=== PATIENT | male | born 1975 | race Two or more races ===

== ENCOUNTER 2019-08-05 17:31 | Inpatient (IN) | payer OTHER ==
[~2019-08-05] VITALS: Ht 172.7 cm; Wt 74.0 kg
[2019-08-05] MEDS ORDERED: MIRT-92 PO (17:59)
[2019-08-05] MEDS ORDERED: RANI50VI4 IM (17:59)
[2019-08-05] MEDS ORDERED: OXCA300T29 PO (17:59)
[2019-08-05] MEDS ORDERED: VENL-193 PO (17:59)
[2019-08-05 18:08] LABS: BASOPHILS % (AUTO) 0.7 % (0.0-2.0); EOSINOPHILS % (AUTO) 0.4 % (1.0-6.0); HEMATOCRIT 42.9 % (41-53); HEMOGLOBIN 14.7 g/dL (13.5-17.5); LYMPHOCYTES # (AUTO) 1.2 K/uL (1.0-4.8); LYMPHOCYTES % (AUTO) 13.7 % (22.0-44.0); MEAN CORPUSCULAR HGB CONC 34.2 G/dL (31.0-37.0); MEAN CORPUSCULAR VOLUME 88 fL (80-100); MONOCYTES # (AUTO) 0.4 K/uL (0.1-1.0); MONOCYTES % (AUTO) 4.8 % (2.0-9.0); NEUTROPHILS # (AUTO) 7.2 K/uL (1.8-7.7); NEUTROPHILS % (AUTO) 80.4 % (40.0-70.0); PLATELET COUNT (AUTO) 335 K/uL (150-450); RED BLOOD CELL COUNT(AUTO) 4.89 MIL/uL (4.50-5.90); RED CELL DISTRIBUTION WIDTH 13.4 % (11.5-14.5)
[2019-08-05 18:26] LABS: ANION GAP 10 mmol/L (8-16); CALCIUM, TOTAL 9.1 mg/dL (8.8-10.5); CARBON DIOXIDE 27 mmol/L (22-29); CHLORIDE 102 mmol/L (98-107); CREATININE 0.83 mg/dL (0.60-1.30); GLOMERULAR FILTR. RATE CALC > 60 mL/min (>60); GLUCOSE,RANDOM 92 mg/dL (70-110); SODIUM SERUM 139 mmol/L (136-145); UREA NITROGEN, BLOOD 6 mg/dL (7-18)
[2019-08-05 18:37] LABS: ALANINE AMINOTRANSFERASE 36 U/L (12-78); ALBUMIN 3.8 g/dL (3.4-5.0); ALKALINE PHOSPHATASE 125 U/L (46-116); ASPARTATE AMINOTRANSFERASE 24 U/L (15-37); BILIRUBIN,TOTAL 0.3 mg/dL (0.1-1.0); TOTAL PROTEIN, SERUM 7.6 g/dL (6.4-8.2)
[2019-08-05] MEDS ORDERED: RANI150T7 PO (19:09)
[2019-08-05] MEDS ORDERED: ACETAMINOPHEN 325 MG TABLET PO PRN (19:15)
[2019-08-05] MEDS ORDERED: CeFAZolin 1 GM/DEXTROSE 50 ML IV ONE (19:15)
[2019-08-05 23:10] VITALS: BP 152/88
[2019-08-05] MEDS: OxyCODONE HCL/ACETAMINOPHEN 5-325 MG TABLET PO PRN (23:17)
[2019-08-06] MEDS: DOCUSATE SODIUM 100 MG CAPSULE PO SCH ×3 (00:07→20:00)
[2019-08-06] MEDS: CEPHALEXIN MONOHYDRATE 500 MG CAPSULE PO SCH ×4 (00:07→23:59)
[2019-08-06 04:30] VITALS: BP 124/65
[2019-08-06] MEDS: OxyCODONE HCL/ACETAMINOPHEN 5-325 MG TABLET PO PRN ×4 (04:36→20:01)
[2019-08-06] MEDS ORDERED: INFLUENZA VIRUS VACCINE QVS 2019-20 (3YR+)/PF 60 MCG/0.5 ML SYRINGE IM ONE (07:45)
[2019-08-06] MEDS: FAMOTIDINE 20 MG TABLET PO SCH (08:05)
[2019-08-06 08:20] VITALS: BP 145/88
[2019-08-06] MEDS: VENLAFAXINE HCL 75 MG ER CAPSULE PO SCH (16:05)
[2019-08-06 16:17] VITALS: BP 142/77
[2019-08-06] MEDS: OXcarbazepine 300 MG TABLET PO SCH (17:22)
[2019-08-06 19:28] VITALS: BP 135/77
[2019-08-06] MEDS: MIRTAZAPINE 15 MG TABLET PO SCH ×3 (21:00→21:55)
[2019-08-06] MEDS: MAGNESIUM HYDROXIDE SUSPENSION 30 ML UDCUP PO PRN (21:48)
[2019-08-07 04:00] VITALS: BP 134/87
[2019-08-07] MEDS: VENLAFAXINE HCL 75 MG ER CAPSULE PO SCH (09:07)
[2019-08-07] MEDS: FAMOTIDINE 20 MG TABLET PO SCH (09:07)
[2019-08-07] MEDS: DOCUSATE SODIUM 100 MG CAPSULE PO SCH ×3 (09:07→20:25)
[2019-08-07] MEDS: MAGNESIUM HYDROXIDE SUSPENSION 30 ML UDCUP PO PRN (09:07)
[2019-08-07] MEDS: MULTIVITAMINS, THERAPEUTIC TABLET PO SCH (09:07)
[2019-08-07] MEDS: CEPHALEXIN MONOHYDRATE 500 MG CAPSULE PO SCH ×3 (09:07→23:17)
[2019-08-07] MEDS: OxyCODONE HCL/ACETAMINOPHEN 5-325 MG TABLET PO PRN ×2 (09:08→16:38)
[2019-08-07] MEDS: OXcarbazepine 300 MG TABLET PO SCH (17:34)
[2019-08-07 17:35] VITALS: BP 137/79
[2019-08-07] MEDS ORDERED: SODIUM CL IRRIG SOLN BOTTLE 250 ML IRRIG ONE (18:03)
[2019-08-07 19:25] VITALS: BP 151/64
[2019-08-07] MEDS: MIRTAZAPINE 15 MG TABLET PO SCH (20:26)
[2019-08-08 05:32] VITALS: BP 116/75
[2019-08-08 08:04] VITALS: BP 125/76
[2019-08-08] MEDS: CEPHALEXIN MONOHYDRATE 500 MG CAPSULE PO SCH ×2 (08:05→16:33)
[2019-08-08] MEDS: FAMOTIDINE 20 MG TABLET PO SCH (08:16)
[2019-08-08] MEDS: OxyCODONE HCL/ACETAMINOPHEN 5-325 MG TABLET PO PRN ×2 (08:16→16:35)
[2019-08-08] MEDS: VENLAFAXINE HCL 75 MG ER CAPSULE PO SCH (08:16)
[2019-08-08] MEDS: DOCUSATE SODIUM 100 MG CAPSULE PO SCH ×2 (08:17→19:59)
[2019-08-08] MEDS: MULTIVITAMINS, THERAPEUTIC TABLET PO SCH (08:17)
[2019-08-08 16:27] VITALS: BP 145/82
[2019-08-08] MEDS: OXcarbazepine 300 MG TABLET PO SCH (17:30)
[2019-08-08 19:49] VITALS: BP 139/99
[2019-08-08] MEDS: MIRTAZAPINE 15 MG TABLET PO SCH (20:00)
[2019-08-09] MEDS: CEPHALEXIN MONOHYDRATE 500 MG CAPSULE PO SCH ×4 (00:30→23:58)
[2019-08-09] MEDS: OxyCODONE HCL/ACETAMINOPHEN 5-325 MG TABLET PO PRN ×5 (00:33→23:58)
[2019-08-09 04:30] VITALS: BP 126/71
[2019-08-09 07:56] VITALS: BP 132/74
[2019-08-09] MEDS: VENLAFAXINE HCL 75 MG ER CAPSULE PO SCH (08:10)
[2019-08-09] MEDS: FAMOTIDINE 20 MG TABLET PO SCH (08:10)
[2019-08-09] MEDS: MULTIVITAMINS, THERAPEUTIC TABLET PO SCH (08:11)
[2019-08-09] MEDS: DOCUSATE SODIUM 100 MG CAPSULE PO SCH ×2 (08:11→19:58)
[2019-08-09 11:32] VITALS: BP_SYST 131; BP_SYST 141; BP_DIAS 78
[2019-08-09] MEDS: OXcarbazepine 300 MG TABLET PO SCH (17:48)
[2019-08-09 19:36] VITALS: BP 121/73
[2019-08-09] MEDS: MAGNESIUM HYDROXIDE SUSPENSION 30 ML UDCUP PO PRN (19:58)
[2019-08-09] MEDS: MIRTAZAPINE 15 MG TABLET PO SCH (20:01)
[2019-08-10 05:50] VITALS: BP 128/76
[2019-08-10] MEDS: VENLAFAXINE HCL 75 MG ER CAPSULE PO SCH (07:56)
[2019-08-10] MEDS: DOCUSATE SODIUM 100 MG CAPSULE PO SCH ×2 (07:57→19:39)
[2019-08-10] MEDS: CEPHALEXIN MONOHYDRATE 500 MG CAPSULE PO SCH ×2 (07:57→15:13)
[2019-08-10] MEDS: MULTIVITAMINS, THERAPEUTIC TABLET PO SCH (07:57)
[2019-08-10] MEDS: FAMOTIDINE 20 MG TABLET PO SCH (07:57)
[2019-08-10 08:08] VITALS: BP 138/94
[2019-08-10] MEDS ORDERED: BISACODYL 10 MG RECTAL RECTAL SUPPOSITORY PR PRN (09:45)
[2019-08-10] MEDS: OxyCODONE HCL/ACETAMINOPHEN 5-325 MG TABLET PO PRN ×3 (10:45→19:39)
[2019-08-10] MEDS: NEOMYCIN/BACITRACIN/POLYMYXIN B 30 GM OINTMENT TP SCH (15:23)
[2019-08-10] MEDS: OXcarbazepine 300 MG TABLET PO SCH (17:58)
[2019-08-10 19:40] VITALS: BP 142/81
[2019-08-10] MEDS: MIRTAZAPINE 15 MG TABLET PO SCH (19:41)
[2019-08-11] MEDS: OxyCODONE HCL/ACETAMINOPHEN 5-325 MG TABLET PO PRN ×5 (00:03→20:34)
[2019-08-11] MEDS: CEPHALEXIN MONOHYDRATE 500 MG CAPSULE PO SCH ×3 (00:04→23:26)
[2019-08-11 06:48] VITALS: BP 154/73
[2019-08-11 07:06] LABS: BASOPHILS % (AUTO) 0.8 % (0.0-2.0); HEMATOCRIT 38.9 % (41-53); HEMOGLOBIN 13.4 g/dL (13.5-17.5); LYMPHOCYTES # (AUTO) 2.1 K/uL (1.0-4.8); LYMPHOCYTES % (AUTO) 24.9 % (22.0-44.0); MEAN CORPUSCULAR HEMOGLOBIN 30.1 pg (26.0-34.0); MEAN CORPUSCULAR HGB CONC 34.3 G/dL (31.0-37.0); MEAN CORPUSCULAR VOLUME 88 fL (80-100); MONOCYTES # (AUTO) 0.5 K/uL (0.1-1.0); MONOCYTES % (AUTO) 6.2 % (2.0-9.0); NEUTROPHILS # (AUTO) 5.4 K/uL (1.8-7.7); NEUTROPHILS % (AUTO) 64.1 % (40.0-70.0); PLATELET COUNT (AUTO) 314 K/uL (150-450); RED BLOOD CELL COUNT(AUTO) 4.45 MIL/uL (4.50-5.90); RED CELL DISTRIBUTION WIDTH 13.3 % (11.5-14.5)
[2019-08-11 07:23] LABS: ANION GAP 5 mmol/L (8-16); CALCIUM, TOTAL 8.6 mg/dL (8.8-10.5); CARBON DIOXIDE 30 mmol/L (22-29); CHLORIDE 99 mmol/L (98-107); CREATININE 0.74 mg/dL (0.60-1.30); GLOMERULAR FILTR. RATE CALC > 60 mL/min (>60); GLUCOSE,RANDOM 87 mg/dL (70-110); POTASSIUM 4.5 mmol/L (3.5-5.1); SODIUM SERUM 134 mmol/L (136-145); UREA NITROGEN, BLOOD 10 mg/dL (7-18)
[2019-08-11 08:01] VITALS: BP 96/68
[2019-08-11] MEDS: VENLAFAXINE HCL 75 MG ER CAPSULE PO SCH (08:17)
[2019-08-11] MEDS: MULTIVITAMINS, THERAPEUTIC TABLET PO SCH (08:17)
[2019-08-11] MEDS: DOCUSATE SODIUM 100 MG CAPSULE PO SCH ×2 (08:17→20:34)
[2019-08-11] MEDS: NEOMYCIN/BACITRACIN/POLYMYXIN B 30 GM OINTMENT TP SCH (08:18)
[2019-08-11] MEDS: FAMOTIDINE 20 MG TABLET PO SCH (08:18)
[2019-08-11 08:25] VITALS: BP 127/66
[2019-08-11 15:27] VITALS: BP 116/75
[2019-08-11] MEDS: OXcarbazepine 300 MG TABLET PO SCH (18:06)
[2019-08-11 19:18] VITALS: BP 117/74
[2019-08-11] MEDS: MIRTAZAPINE 15 MG TABLET PO SCH (20:36)
[2019-08-12] MEDS: OxyCODONE HCL/ACETAMINOPHEN 5-325 MG TABLET PO PRN ×5 (00:34→19:48)
[2019-08-12 05:15] VITALS: BP 159/92
[2019-08-12 07:18] VITALS: BP 124/79
[2019-08-12] MEDS: CEPHALEXIN MONOHYDRATE 500 MG CAPSULE PO SCH (08:10)
[2019-08-12] MEDS: VENLAFAXINE HCL 75 MG ER CAPSULE PO SCH (08:10)
[2019-08-12] MEDS: DOCUSATE SODIUM 100 MG CAPSULE PO SCH ×2 (08:10→19:48)
[2019-08-12] MEDS: FAMOTIDINE 20 MG TABLET PO SCH (08:10)
[2019-08-12] MEDS: MULTIVITAMINS, THERAPEUTIC TABLET PO SCH (08:10)
[2019-08-12 15:57] VITALS: BP 148/78
[2019-08-12] MEDS: OXcarbazepine 300 MG TABLET PO SCH (17:53)
[2019-08-12] MEDS: NEOMYCIN/BACITRACIN/POLYMYXIN B 30 GM OINTMENT TP SCH (17:54)
[2019-08-12] MEDS: MIRTAZAPINE 15 MG TABLET PO SCH (19:50)
[2019-08-12 20:14] VITALS: BP 104/57
[2019-08-13] MEDS: OxyCODONE HCL/ACETAMINOPHEN 5-325 MG TABLET PO PRN ×5 (00:13→22:39)
[2019-08-13 06:08] VITALS: BP 117/80
[2019-08-13 08:00] VITALS: BP 118/74
[2019-08-13] MEDS: VENLAFAXINE HCL 75 MG ER CAPSULE PO SCH (08:26)
[2019-08-13] MEDS: DOCUSATE SODIUM 100 MG CAPSULE PO SCH ×2 (08:29→20:11)
[2019-08-13] MEDS: FAMOTIDINE 20 MG TABLET PO SCH (08:29)
[2019-08-13] MEDS: MULTIVITAMINS, THERAPEUTIC TABLET PO SCH (08:30)
[2019-08-13 12:00] VITALS: BP 113/69
[2019-08-13] MEDS: NEOMYCIN/BACITRACIN/POLYMYXIN B 30 GM OINTMENT TP SCH (13:07)
[2019-08-13 16:19] VITALS: BP 114/68
[2019-08-13] MEDS: OXcarbazepine 300 MG TABLET PO SCH (17:31)
[2019-08-13 19:22] VITALS: BP 128/67
[2019-08-13] MEDS: MIRTAZAPINE 15 MG TABLET PO SCH (20:12)
[2019-08-14 05:23] VITALS: BP 134/62
[2019-08-14 08:00] VITALS: BP 128/81
[2019-08-14] MEDS: DOCUSATE SODIUM 100 MG CAPSULE PO SCH ×2 (08:57→20:04)
[2019-08-14] MEDS: MULTIVITAMINS, THERAPEUTIC TABLET PO SCH (08:58)
[2019-08-14] MEDS: FAMOTIDINE 20 MG TABLET PO SCH (08:58)
[2019-08-14] MEDS: VENLAFAXINE HCL 75 MG ER CAPSULE PO SCH (08:58)
[2019-08-14] MEDS: OxyCODONE HCL/ACETAMINOPHEN 5-325 MG TABLET PO PRN ×3 (08:59→19:57)
[2019-08-14] MEDS: NEOMYCIN/BACITRACIN/POLYMYXIN B 30 GM OINTMENT TP SCH (09:00)
[2019-08-14 12:21] VITALS: BP 109/67
[2019-08-14 16:17] VITALS: BP 113/65
[2019-08-14 17:15] LABS: APPEARANCE,URINE CLEAR (CLEAR); BILIRUBIN,URINE NEGATIVE (NEGATIVE); GLUCOSE, URINE (UA) NEGATIVE (NEGATIVE); KETONES,URINE NEGATIVE (NEGATIVE); LEUKOCYTE ESTERASE ,URINE NEGATIVE (NEGATIVE); NITRATE,URINE NEGATIVE (NEGATIVE); OCCULT BLOOD,URINE NEGATIVE (NEGATIVE); PH,URINE 7.5 (5.0-8.0); PROTEIN,URINE NEGATIVE (NEGATIVE); UROBILINOGEN,URINE 0.2 mg/dL (<=1.0)
[2019-08-14 17:20] LABS: AMPHET/METH SCREEN,URINE NEGATIVE (NEGATIVE); BARBITURATE SCREEN, URINE NEGATIVE (NEGATIVE); BENZODIAZEPINES SCREEN,URINE NEGATIVE (NEGATIVE); CANNABINOID SCREEN,URINE NEGATIVE (NEGATIVE); COCAINE SCREEN,URINE NEGATIVE (NEGATIVE); METHADONE SCREEN, URINE NEGATIVE (NEGATIVE); OPIATE SCREEN,URINE NEGATIVE (NEGATIVE)
[2019-08-14 17:22] LABS: PHENCYCLIDINE SCREEN,URINE NEGATIVE (NEGATIVE)
[2019-08-14] MEDS: OXcarbazepine 300 MG TABLET PO SCH (17:34)
[2019-08-14 19:30] VITALS: BP 125/70
[2019-08-14] MEDS: MIRTAZAPINE 15 MG TABLET PO SCH ×2 (19:55→21:00)
[2019-08-14 23:22] VITALS: BP 122/67
[2019-08-15] MEDS: OxyCODONE HCL/ACETAMINOPHEN 5-325 MG TABLET PO PRN ×5 (00:03→22:47)
[2019-08-15 08:08] VITALS: BP 124/68
[2019-08-15] MEDS: MULTIVITAMINS, THERAPEUTIC TABLET PO SCH (08:42)
[2019-08-15] MEDS: DOCUSATE SODIUM 100 MG CAPSULE PO SCH ×2 (08:46→21:00)
[2019-08-15] MEDS: VENLAFAXINE HCL 75 MG ER CAPSULE PO SCH (08:46)
[2019-08-15] MEDS: FAMOTIDINE 20 MG TABLET PO SCH (08:46)
[2019-08-15] MEDS: NEOMYCIN/BACITRACIN/POLYMYXIN B 30 GM OINTMENT TP SCH (11:40)
[2019-08-15 15:38] VITALS: BP 116/65
[2019-08-15] MEDS: OXcarbazepine 300 MG TABLET PO SCH (17:41)
[2019-08-15 19:30] VITALS: BP 118/66
[2019-08-15] MEDS: MIRTAZAPINE 15 MG TABLET PO SCH (20:30)
[2019-08-16 04:00] VITALS: BP 122/68
[2019-08-16 07:26] LABS: HEMATOCRIT 41.1 % (41-53); HEMOGLOBIN 14.1 g/dL (13.5-17.5); MEAN CORPUSCULAR HEMOGLOBIN 29.8 pg (26.0-34.0); MEAN CORPUSCULAR HGB CONC 34.2 G/dL (31.0-37.0); MEAN CORPUSCULAR VOLUME 87 fL (80-100); PLATELET COUNT (AUTO) 365 K/uL (150-450); RED BLOOD CELL COUNT(AUTO) 4.72 MIL/uL (4.50-5.90); RED CELL DISTRIBUTION WIDTH 13.3 % (11.5-14.5)
[2019-08-16 07:30] VITALS: BP 104/72
[2019-08-16 07:39] LABS: ANION GAP 6 mmol/L (8-16); CALCIUM, TOTAL 8.9 mg/dL (8.8-10.5); CARBON DIOXIDE 30 mmol/L (22-29); CHLORIDE 98 mmol/L (98-107); CREATININE 0.87 mg/dL (0.60-1.30); GLOMERULAR FILTR. RATE CALC > 60 mL/min (>60); GLUCOSE,RANDOM 85 mg/dL (70-110); POTASSIUM 4.6 mmol/L (3.5-5.1); SODIUM SERUM 134 mmol/L (136-145); UREA NITROGEN, BLOOD 11 mg/dL (7-18)
[2019-08-16 07:50] LABS: BAND NEUTROPHILS % (MANUAL) 1 % (0-5); EOSINOPHILS % (MANUAL) 1 % (1-6); LYMPHOCYTES % (MANUAL) 32 % (22-44); MONOCYTES % (MANUAL) 9 % (2-9); SEGMENTED NEUTROPHILS % 57 % (40-70)
[2019-08-16] MEDS: FAMOTIDINE 20 MG TABLET PO SCH (08:37)
[2019-08-16] MEDS: VENLAFAXINE HCL 75 MG ER CAPSULE PO SCH (08:37)
[2019-08-16] MEDS: MULTIVITAMINS, THERAPEUTIC TABLET PO SCH (08:37)
[2019-08-16] MEDS: DOCUSATE SODIUM 100 MG CAPSULE PO SCH ×2 (08:37→20:40)
[2019-08-16] MEDS: OxyCODONE HCL/ACETAMINOPHEN 5-325 MG TABLET PO PRN ×4 (08:39→21:37)
[2019-08-16 15:07] VITALS: BP_SYST 106; BP_SYST 147; BP_DIAS 74
[2019-08-16] MEDS: OXcarbazepine 300 MG TABLET PO SCH (17:14)
[2019-08-16] MEDS: NEOMYCIN/BACITRACIN/POLYMYXIN B 30 GM OINTMENT TP SCH (17:53)
[2019-08-16 19:46] VITALS: BP 150/74
[2019-08-16] MEDS: MIRTAZAPINE 15 MG TABLET PO SCH (20:42)
[2019-08-17 04:58] VITALS: BP 132/75
[2019-08-17 07:49] VITALS: BP 108/70
[2019-08-17] MEDS: MULTIVITAMINS, THERAPEUTIC TABLET PO SCH (09:00)
[2019-08-17] MEDS: VENLAFAXINE HCL 75 MG ER CAPSULE PO SCH (09:01)
[2019-08-17] MEDS: FAMOTIDINE 20 MG TABLET PO SCH (09:01)
[2019-08-17] MEDS: DOCUSATE SODIUM 100 MG CAPSULE PO SCH ×2 (09:01→19:37)
[2019-08-17 09:04] VITALS: BP 130/80
[2019-08-17] MEDS: OxyCODONE HCL/ACETAMINOPHEN 5-325 MG TABLET PO PRN ×4 (09:04→23:34)
[2019-08-17] MEDS: NEOMYCIN/BACITRACIN/POLYMYXIN B 30 GM OINTMENT TP SCH (14:23)
[2019-08-17 15:25] VITALS: BP 129/72
[2019-08-17] MEDS: OXcarbazepine 300 MG TABLET PO SCH (17:34)
[2019-08-17 19:23] VITALS: BP 129/75
[2019-08-17] MEDS: MIRTAZAPINE 15 MG TABLET PO SCH (19:39)
[2019-08-17 23:30] VITALS: BP 121/76
[2019-08-18 05:00] VITALS: BP 118/77
[2019-08-18] MEDS: FAMOTIDINE 20 MG TABLET PO SCH (08:17)
[2019-08-18] MEDS: MULTIVITAMINS, THERAPEUTIC TABLET PO SCH (08:17)
[2019-08-18] MEDS: DOCUSATE SODIUM 100 MG CAPSULE PO SCH ×2 (08:17→20:00)
[2019-08-18] MEDS: VENLAFAXINE HCL 75 MG ER CAPSULE PO SCH (08:17)
[2019-08-18] MEDS: OxyCODONE HCL/ACETAMINOPHEN 5-325 MG TABLET PO PRN ×4 (08:20→21:45)
[2019-08-18 08:24] VITALS: BP 110/58
[2019-08-18 15:40] VITALS: BP 126/89
[2019-08-18] MEDS: OXcarbazepine 300 MG TABLET PO SCH (17:06)
[2019-08-18] MEDS: MIRTAZAPINE 15 MG TABLET PO SCH (20:00)
[2019-08-18] MEDS: ASCORBIC ACID 500 MG TABLET PO SCH (20:00)
[2019-08-18 20:01] VITALS: BP 106/54
[2019-08-19] MEDS: OxyCODONE HCL/ACETAMINOPHEN 5-325 MG TABLET PO PRN ×5 (01:59→23:32)
[2019-08-19 04:00] VITALS: BP 105/73
[2019-08-19] MEDS: DOCUSATE SODIUM 100 MG CAPSULE PO SCH ×2 (08:48→21:00)
[2019-08-19] MEDS: MULTIVITAMINS, THERAPEUTIC TABLET PO SCH (08:48)
[2019-08-19] MEDS: VENLAFAXINE HCL 150 MG ER CAPSULE PO SCH (08:48)
[2019-08-19] MEDS: FAMOTIDINE 20 MG TABLET PO SCH (08:48)
[2019-08-19] MEDS: ASCORBIC ACID 500 MG TABLET PO SCH ×2 (08:48→21:00)
[2019-08-19 09:00] VITALS: BP 124/60
[2019-08-19 15:20] VITALS: BP 122/58
[2019-08-19] MEDS: OXcarbazepine 300 MG TABLET PO SCH (18:51)
[2019-08-19 19:26] VITALS: BP 111/64
[2019-08-19] MEDS: MIRTAZAPINE 15 MG TABLET PO SCH (21:00)
[2019-08-20 04:50] VITALS: BP 106/72
[2019-08-20 07:15] VITALS: BP 123/78
[2019-08-20] MEDS: VENLAFAXINE HCL 150 MG ER CAPSULE PO SCH (09:00)
[2019-08-20] MEDS: DOCUSATE SODIUM 100 MG CAPSULE PO SCH ×2 (09:00→20:35)
[2019-08-20] MEDS: ASCORBIC ACID 500 MG TABLET PO SCH ×2 (09:00→20:35)
[2019-08-20] MEDS ORDERED: FentaNYL CITRATE-PF 100 MCG/2 ML VIAL IVP ONE (12:00)
[2019-08-20] MEDS ORDERED: LIDOCAINE/PF 2% 5 ML SYRINGE IVP ONE (12:00)
[2019-08-20] MEDS ORDERED: MIDAZOLAM HCL 2 MG/2 ML VIAL IVP ONE (12:00)
[2019-08-20] MEDS ORDERED: PROPOFOL 1% 20 ML VIAL IVP ONE (12:00)
[2019-08-20 14:34] VITALS: BP 103/71
[2019-08-20] MEDS ORDERED: LIDOCAINE/PF 1% 30 ML VIAL ONE (15:22)
[2019-08-20] MEDS ORDERED: BUPIVACAINE HCL/PF 0.25% 30 ML VIAL ONE (15:22)
[2019-08-20] MEDS ORDERED: SODIUM CL IRRIG SOLN BAG 0 ML IRRIG ONE (15:23)
[2019-08-20] MEDS ORDERED: RINGERS SOLUTION,LACTATED 1,000 ML IV ONE (15:52)
[2019-08-20] MEDS ORDERED: BACITRACIN 28.4 GM OINTMENT TP ONE (16:38)
[2019-08-20] MEDS ORDERED: FentaNYL CITRATE-PF 100 MCG/2 ML VIAL IVP PRN (17:00)
[2019-08-20] MEDS ORDERED: HYDROmorphone 2 MG/ML SYRINGE IVP PRN (17:00)
[2019-08-20 17:25] VITALS: BP 118/78
[2019-08-20] MEDS: FAMOTIDINE 20 MG TABLET PO SCH (18:23)
[2019-08-20] MEDS: OXcarbazepine 300 MG TABLET PO SCH (18:23)
[2019-08-20] MEDS: MULTIVITAMINS, THERAPEUTIC TABLET PO SCH (18:23)
[2019-08-20] MEDS: OxyCODONE HCL/ACETAMINOPHEN 5-325 MG TABLET PO PRN ×2 (18:27→22:20)
[2019-08-20 19:38] VITALS: BP 121/59
[2019-08-20] MEDS ORDERED: OXYGEN THERAPY IH SCH (20:00)
[2019-08-20] MEDS: MIRTAZAPINE 15 MG TABLET PO SCH (20:35)
[2019-08-21 04:57] VITALS: BP 121/78
[2019-08-21] MEDS: OxyCODONE HCL/ACETAMINOPHEN 5-325 MG TABLET PO PRN ×5 (05:07→22:40)
[2019-08-21 08:00] VITALS: BP 122/76
[2019-08-21] MEDS: ASCORBIC ACID 500 MG TABLET PO SCH ×2 (08:42→20:41)
[2019-08-21] MEDS: FAMOTIDINE 20 MG TABLET PO SCH (08:42)
[2019-08-21] MEDS: MULTIVITAMINS, THERAPEUTIC TABLET PO SCH (08:42)
[2019-08-21] MEDS: DOCUSATE SODIUM 100 MG CAPSULE PO SCH ×2 (08:42→20:37)
[2019-08-21] MEDS: VENLAFAXINE HCL 150 MG ER CAPSULE PO SCH (08:42)
[2019-08-21 15:10] VITALS: BP 118/75
[2019-08-21] MEDS: OXcarbazepine 300 MG TABLET PO SCH (18:19)
[2019-08-21 20:06] VITALS: BP 117/63
[2019-08-21] MEDS: MIRTAZAPINE 15 MG TABLET PO SCH (20:41)
[2019-08-22 04:10] VITALS: BP 113/78
[2019-08-22] MEDS: VENLAFAXINE HCL 150 MG ER CAPSULE PO SCH (08:28)
[2019-08-22] MEDS: MULTIVITAMINS, THERAPEUTIC TABLET PO SCH (08:28)
[2019-08-22] MEDS: FAMOTIDINE 20 MG TABLET PO SCH (08:28)
[2019-08-22] MEDS: DOCUSATE SODIUM 100 MG CAPSULE PO SCH ×2 (08:28→20:18)
[2019-08-22] MEDS: ASCORBIC ACID 500 MG TABLET PO SCH ×2 (08:28→20:18)
[2019-08-22] MEDS: OxyCODONE HCL/ACETAMINOPHEN 5-325 MG TABLET PO PRN ×4 (08:34→23:19)
[2019-08-22 08:35] VITALS: BP 136/94
[2019-08-22 16:31] VITALS: BP 136/78
[2019-08-22] MEDS: OXcarbazepine 300 MG TABLET PO SCH (17:12)
[2019-08-22 19:52] VITALS: BP 135/68
[2019-08-22] MEDS: MIRTAZAPINE 15 MG TABLET PO SCH (20:18)
[2019-08-23 04:48] VITALS: BP 106/65
[2019-08-23 07:57] LABS: BASOPHILS % (AUTO) 0.9 % (0.0-2.0); EOSINOPHILS % (AUTO) 3.5 % (1.0-6.0); HEMATOCRIT 41.4 % (41-53); HEMOGLOBIN 13.7 g/dL (13.5-17.5); LYMPHOCYTES # (AUTO) 2.6 K/uL (1.0-4.8); LYMPHOCYTES % (AUTO) 34.7 % (22.0-44.0); MEAN CORPUSCULAR HEMOGLOBIN 29.3 pg (26.0-34.0); MEAN CORPUSCULAR VOLUME 89 fL (80-100); MONOCYTES # (AUTO) 0.5 K/uL (0.1-1.0); MONOCYTES % (AUTO) 6.6 % (2.0-9.0); NEUTROPHILS # (AUTO) 4.1 K/uL (1.8-7.7); NEUTROPHILS % (AUTO) 54.3 % (40.0-70.0); PLATELET COUNT (AUTO) 357 K/uL (150-450); RED BLOOD CELL COUNT(AUTO) 4.66 MIL/uL (4.50-5.90); RED CELL DISTRIBUTION WIDTH 13.9 % (11.5-14.5)
[2019-08-23 08:03] LABS: ANION GAP 7 mmol/L (8-16); CALCIUM, TOTAL 9.1 mg/dL (8.8-10.5); CARBON DIOXIDE 31 mmol/L (22-29); CHLORIDE 101 mmol/L (98-107); GLOMERULAR FILTR. RATE CALC > 60 mL/min (>60); GLUCOSE,RANDOM 90 mg/dL (70-110); POTASSIUM 4.3 mmol/L (3.5-5.1); SODIUM SERUM 139 mmol/L (136-145)
[2019-08-23 08:05] VITALS: BP 126/69
[2019-08-23 08:18] LABS: UREA NITROGEN, BLOOD 15 mg/dL (7-18)
[2019-08-23] MEDS: MULTIVITAMINS, THERAPEUTIC TABLET PO SCH (09:54)
[2019-08-23] MEDS: DOCUSATE SODIUM 100 MG CAPSULE PO SCH ×2 (09:54→20:16)
[2019-08-23] MEDS: FAMOTIDINE 20 MG TABLET PO SCH (09:54)
[2019-08-23] MEDS: VENLAFAXINE HCL 150 MG ER CAPSULE PO SCH (09:54)
[2019-08-23] MEDS: ASCORBIC ACID 500 MG TABLET PO SCH ×2 (09:55→20:16)
[2019-08-23] MEDS: OxyCODONE HCL/ACETAMINOPHEN 5-325 MG TABLET PO PRN ×4 (09:58→22:54)
[2019-08-23 13:53] VITALS: BP 126/71
[2019-08-23] MEDS: OXcarbazepine 300 MG TABLET PO SCH (18:09)
[2019-08-23 19:45] VITALS: BP 124/81
[2019-08-23] MEDS: MIRTAZAPINE 15 MG TABLET PO SCH (20:16)
[2019-08-24 06:00] VITALS: BP 112/65
[2019-08-24 07:53] VITALS: BP 124/81
[2019-08-24] MEDS: OxyCODONE HCL/ACETAMINOPHEN 5-325 MG TABLET PO PRN ×3 (08:09→18:01)
[2019-08-24] MEDS: FAMOTIDINE 20 MG TABLET PO SCH (08:09)
[2019-08-24] MEDS: MULTIVITAMINS, THERAPEUTIC TABLET PO SCH (08:09)
[2019-08-24] MEDS: ASCORBIC ACID 500 MG TABLET PO SCH ×2 (08:09→20:15)
[2019-08-24] MEDS: DOCUSATE SODIUM 100 MG CAPSULE PO SCH ×2 (08:09→20:15)
[2019-08-24] MEDS: VENLAFAXINE HCL 150 MG ER CAPSULE PO SCH (08:09)
[2019-08-24] MEDS ORDERED: BACI30OI6 TP (14:55)
[2019-08-24] MEDS ORDERED: MULT-1192 PO (14:55)
[2019-08-24] MEDS ORDERED: MIRT-92 PO (14:57)
[2019-08-24] MEDS ORDERED: VENL-68 PO (14:58)
[2019-08-24 15:32] VITALS: BP 122/78
[2019-08-24] MEDS: OXcarbazepine 300 MG TABLET PO SCH (18:02)
[2019-08-24 20:00] VITALS: BP 136/74
[2019-08-24] MEDS: MIRTAZAPINE 15 MG TABLET PO SCH (20:15)
[2019-08-25] MEDS ORDERED: BACITRACIN 28.4 GM OINTMENT TP SCH (09:00)
== END 2019-08-24 20:42 | DRG 876 ==
LOC: EMS 17:35 → 6S 19:00
PROVIDERS: ADMIT Internal Medicine; ATTEND Internal Medicine
PROC: 0JBK0ZZ Excision of Left Hand Subcutaneous Tissue and Fascia, Open Approach (ICD-10-PCS; 2019-08-20)
PROC: 0XQT0ZZ Repair Left Ring Finger, Open Approach (ICD-10-PCS; principal; 2019-08-20 15:30)
DX: F31.4 Bipolar disorder, current episode depressed, severe, without psychotic features (principal); R45.851 Suicidal ideations; F29 Unspecified psychosis not due to a substance or known physiological condition; S62.637A Displaced fracture of distal phalanx of left little finger, initial encounter for closed fracture; K59.00 Constipation, unspecified; S51.811A Laceration without foreign body of right forearm, initial encounter; S51.812A Laceration without foreign body of left forearm, initial encounter; X83.8XXA Intentional self-harm by other specified means, initial encounter; Y93.89 Activity, other specified; Y92.89 Other specified places as the place of occurrence of the external cause; Y99.8 Other external cause status
CPT/HCPCS: 85007; G0480; J0690; J2250; J2704; J3010; J3490; J7120